=== PATIENT | male | born 1970 | race Caucasian/White ===

== ENCOUNTER 2020-02-27 11:31 | Emergency (ER) | payer BC ==
[2020-02-27 12:52] LABS: BILIRUBIN NEGATIVE (NEGATIVE); CLARITY CLEAR (CLEAR); COLOR YELLOW (YELLOW); GLUCOSE NEGATIVE (NEGATIVE); KETONE NEGATIVE (NEGATIVE)
[2020-02-27 12:53] LABS: BLOOD NEGATIVE (NEGATIVE); LEUKO ESTERASE NEGATIVE (NEGATIVE); NITRITE NEGATIVE (NEGATIVE); PH 7.5 (5.0-9.0); RBC 0-2 rbc/hpf (0-2); SPECIFIC GRAVITY 1.015 (1.005-1.030)
[2020-02-27] MEDS ORDERED: NAPROSYN500 MG PO ×2 (12:59→13:01)
[2020-02-27] MEDS ORDERED: METHOCARBAMOL500 M1 PO ×2 (12:59→13:01)
== END 2020-02-27 13:06 | disposition home or self-care (01) ==
LOC: ED 11:31
PROVIDERS: Nurse Practitioner Family
DX: M54.9 Dorsalgia, unspecified (principal)